=== PATIENT | female | born 1985 | race Caucasian/White ===

== ENCOUNTER 2018-09-22 12:46 | Day surgery (SDC) | payer OTHER ==
[2018-09-22 13:20] VITALS: BP 134/60; TEMP 98.1; BMI 37.0
--- NOTE | 2018-09-22 19:08 | ULT ---
OB ULTRASOUND 09/22/18 COMPARISON: None. HISTORY: Nonreactive stress test in the office. Perform umbilical doppler and ultrasound. TECHNIQUE: Multiplanar hoffmann scale and color doppler images were obtained in a ultrasound. Spectral analysi s of the doppler waveforms of the umbilical artery was also performed. FINDINGS: There is a single live intrauterine with heart rate of 139 beats per minute. Average age of the fetus based off today's examination is 33 weeks, 4 days. The following measurements were taken a nd dates based off these measurements are as follows: BPD 8.55 cm 34 weeks, 3 days HC 30.28 cm 33 weeks, 4 days AC 28.59 cm 32 weeks, 4 days FL 6.53 cm 33 weeks, 5 days The placenta is anterior in location without focal abnormality. The fetus is in cephalic presentation . Cervix is normal in length. QUINCY is 9.7 cm, which is normal. The umbilical artery was assessed. There is continued diastolic flow within the umbilical artery. The systolic to diastolic ratios in the umbilical artery range from 1.3 to 2.0, which are normal. A biophysical profile was performed. The fetus scored 8 of 8, which is normal. IMPRESSION: 1. Normal biophysical profile. 2. Single live intrauterine with estimated age of 33 weeks, 4 days. 3. Normal umbilical artery ultrasound. POS: [facility]
== END 2018-09-22 15:18 | disposition home or self-care (01) ==
LOC: L&D/OP 12:46
PROVIDERS: ATTEND Family Medicine
DX: Z01.89 Encounter for other specified special examinations (principal); Z3A.33 33 weeks gestation of pregnancy; Z79.899 Other long term (current) drug therapy
CPT/HCPCS: 76815; 76819; 93976; 99282

== ENCOUNTER 2018-10-29 20:00 | Inpatient (IN) | payer OTHER ==
[2018-10-29 21:07] VITALS: BMI 37.1
[2018-10-29] MEDS ORDERED: Butorphanol Tartrate 1 MG/ML VIAL SLOW IVP PRN (21:07)
[2018-10-29] MEDS ORDERED: Carboprost 250 MCG/ML AMP IM PRN (21:07)
[2018-10-29] MEDS ORDERED: NS w/ Oxytocin 10 units 500 ML IV SCH ×2 (21:07)
[2018-10-29] MEDS ORDERED: Ibuprofen 800 MG TAB PO PRN (21:07)
[2018-10-29] MEDS ORDERED: HYDROcodone/Acetaminophen 5/325 mg Tablet PO PRN (21:07)
[2018-10-29] MEDS ORDERED: Ondansetron PF 4 MG/2 ML Vial IVP PRN (21:07)
[2018-10-29] MEDS ORDERED: Promethazine HCl 25 MG/ML VIAL IM PRN (21:07)
[2018-10-29] MEDS ORDERED: Misoprostol 200 MCG TAB PR PRN (21:07)
[2018-10-29] MEDS ORDERED: Lidocaine 1% (PF) 30 ML VIAL SC PRN (21:07)
[2018-10-29] MEDS ORDERED: Methylergonovine 0.2 MG/ML VIAL IM PRN (21:07)
[2018-10-29] MEDS ORDERED: Diphenoxylate HCl/Atropine Tablet PO PRN (21:07)
[2018-10-29] MEDS ORDERED: Penicillin G Potassium 5 MILL.UNITS in Sodium Chloride 0.9% 100 ML IVPB SCH (21:07)
[2018-10-29] MEDS: Lactated Ringer's 1,000 ML IV SCH (21:39)
[2018-10-29 21:56] LABS: Hemoglobin 12.4 g/dL (12.0-16.0); Mean Corpuscular HGB CONC 35.4 g/dL (32.0-36.0); Mean Corpuscular Hemoglobin 31.4 pg (27.0-31.0); Mean Corpuscular Volume 88.7 fL (78.0-98.0); Mean Platelet Volume 8.8 fL (7.4-10.4); Platelet Count 284 thou/uL (130-400); RBC Distribution Width 12.1 % (11.5-14.5); Red Blood Cell (RBC) Count 3.96 mill/uL (4.20-5.40); White Blood Cell (WBC) Count 9.7 thou/uL (4.8-10.8)
[2018-10-29] MEDS: Misoprostol 100 MCG TAB PO SCH (22:07)
[2018-10-29 22:31] LABS: Syphilis Antibody Nonreactive (Nonreactive); Syphilis Antibody Index 0.12 S/CO (<1.00 Non-Reactive)
[2018-10-29 23:07] LABS: HBSAg Index 0.22 S/CO (0-0.99); Hep B Surf Ag Non-Reactive S/CO (NonReactive)
[2018-10-30] MEDS: Misoprostol 100 MCG TAB PO SCH ×2 (02:06→06:11)
[2018-10-30] MEDS: Lactated Ringer's 1,000 ML IV SCH ×4 (02:37→14:59)
[2018-10-30] MEDS: Penicillin G 2.5 MILL.units 2.5 MILL.UNITS in Premix Bag 1 BAG IVPB SCH ×4 (09:06→20:05)
[2018-10-30] MEDS ORDERED: Fentanyl 4 mcg/Bup 0.1% Cadd 100 ML ONE ×2 (10:07→16:29)
[2018-10-30] MEDS ORDERED: Fentanyl 100 MCG/2 ML VIAL ONE (10:19)
[2018-10-30] MEDS ORDERED: Bupivacaine 0.5% 10 ML VIAL ONE (10:19)
[2018-10-30] MEDS ORDERED: Bupivacaine 0.25% 10 ML VIAL EPIDURAL ONE (10:44)
[2018-10-30] MEDS ORDERED: diphenhydrAMINE 50 MG/ML VIAL IVP PRN (10:46)
[2018-10-30] MEDS ORDERED: Fentanyl 100 MCG/2 ML VIAL I-THECAL ONE (10:46)
[2018-10-30] MEDS ORDERED: Eucerin (Mineral Oil/Petrolatum,White) 30 gm Jar TOP PRN (10:46)
[2018-10-30] MEDS ORDERED: Acetaminophen 325 MG TAB PO PRN (10:46)
[2018-10-30] MEDS ORDERED: Ondansetron PF 4 MG/2 ML Vial IVP PRN ×2 (10:46→20:57)
[2018-10-30] MEDS ORDERED: Naloxone HCl 0.4 mg/ml Vial IVP PRN ×2 (10:46)
[2018-10-30] MEDS ORDERED: Lactated Ringer's 500 ML IV PRN (10:46)
[2018-10-30] MEDS ORDERED: Promethazine HCl 25 MG/ML VIAL IM PRN (10:46)
[2018-10-30] MEDS ORDERED: ePHEDrine/0.9% NaCl/PF SYRINGE 50 mg/10 ml SLOW IVP PRN (10:46)
[2018-10-30] MEDS ORDERED: Fentanyl 4 mcg/Bupivacaine 0.1% Cassette 100 ML EPIDURAL SCH (11:00)
[2018-10-30] MEDS ORDERED: Communication Order-Pharmacy FS SCH (11:00)
[2018-10-30] MEDS ORDERED: Bupivacaine HCl 0.5%/Epinephrine 1:200,000/PF 30 ml Vial ONE (11:11)
[2018-10-30] MEDS ORDERED: Lidocaine 2% MPF 10 ML AMP (For Epidural Use) ONE (11:11)
[2018-10-30] MEDS: NS / Oxytocin 40 units/1000ml 1,000 ML IV PRN ×2 (19:40→20:56)
[2018-10-30] MEDS ORDERED: Benzocaine/Menthol 20-0.5% 60 ML CAN TOP PRN (20:57)
[2018-10-30] MEDS ORDERED: diphenhydrAMINE 25 MG CAP PO PRN (20:57)
[2018-10-30] MEDS ORDERED: HYDROcodone/Acetaminophen 5/325 mg Tablet PO PRN ×2 (20:57)
[2018-10-30] MEDS ORDERED: Lanolin Ointment 7 GM TUBE TOP PRN (20:57)
[2018-10-30] MEDS ORDERED: Bisacodyl 10 MG SUPP PR PRN (20:57)
[2018-10-30] MEDS ORDERED: Preparation H Ointment 28 GM TUBE PR PRN (20:57)
[2018-10-30] MEDS ORDERED: NS / Oxytocin 40 units/1000ml 1,000 ML IV SCH (20:57)
[2018-10-30] MEDS ORDERED: Milk Of Magnesia 30 ML UDCUP PO PRN (20:57)
[2018-10-30] MEDS: Docusate Calcium (SURFAK) 240 MG CAP PO SCH (23:31)
[2018-10-30] MEDS: Ibuprofen 800 MG TAB PO SCH (23:31)
[2018-10-31] MEDS: Ibuprofen 800 MG TAB PO SCH ×3 (05:33→21:08)
[2018-10-31 08:13] LABS: Hemoglobin 11.6 g/dL (12.0-16.0); Mean Corpuscular HGB CONC 32.7 g/dL (32.0-36.0); Mean Corpuscular Hemoglobin 29.6 pg (27.0-31.0); Mean Corpuscular Volume 90.6 fL (78.0-98.0); Mean Platelet Volume 8.4 fL (7.4-10.4); Platelet Count 244 thou/uL (130-400); RBC Distribution Width 12.2 % (11.5-14.5); White Blood Cell (WBC) Count 11.9 thou/uL (4.8-10.8)
[2018-10-31] MEDS: Ferrous Sulfate 325 MG TAB PO SCH ×2 (09:49→17:29)
[2018-10-31] MEDS: Docusate Calcium (SURFAK) 240 MG CAP PO SCH ×2 (09:56→21:08)
[2018-10-31] MEDS: Prenatal Vitamin 1 TAB PO SCH (09:56)
[2018-11-01] MEDS: Ibuprofen 800 MG TAB PO SCH ×2 (05:56→14:00)
[2018-11-01 08:10] VITALS: BP 120/75; TEMP 98.1
[2018-11-01] MEDS: Ferrous Sulfate 325 MG TAB PO SCH (08:25)
[2018-11-01] MEDS: Docusate Calcium (SURFAK) 240 MG CAP PO SCH (09:16)
[2018-11-01] MEDS: Prenatal Vitamin 1 TAB PO SCH (09:16)
== END 2018-11-01 15:45 | disposition home or self-care (01) | DRG 807 ==
LOC: L&D 20:38 → 3SE 10-30 14:12 → L&D 10-30 14:14 → 3SW 10-30 22:07
PROVIDERS: ADMIT Family Medicine; ATTEND Family Medicine
PROC: 3E0P7VZ Introduction of Hormone into Female Reproductive, Via Natural or Artificial Opening (ICD-10-PCS; 2018-10-29)
PROC: 10907ZC Drainage of Amniotic Fluid, Therapeutic from Products of Conception, Via Natural or Artificial Opening (ICD-10-PCS; 2018-10-29)
PROC: 10E0XZZ Delivery of Products of Conception, External Approach (ICD-10-PCS; principal; 2018-10-30)
PROC: 10H07YZ Insertion of Other Device into Products of Conception, Via Natural or Artificial Opening (ICD-10-PCS; 2018-10-30)
DX: O24.420 Gestational diabetes mellitus in childbirth, diet controlled (principal); Z37.0 Single live birth; O99.214 Obesity complicating childbirth; O69.81X0 Labor and delivery complicated by cord around neck, without compression, not applicable or unspecified; E66.01 Morbid (severe) obesity due to excess calories; Z68.37 Body mass index [BMI] 37.0-37.9, adult; Z3A.38 38 weeks gestation of pregnancy
CPT/HCPCS: 36415; 36416; 51702; 85027; 86780; 86850; 86900; 86901; 87340; J0595; J0670; J2001; J3010; J3490

== ENCOUNTER 2019-11-12 19:45 | Inpatient (IN) | payer OTHER ==
[2019-11-13] MEDS ORDERED: Penicillin G Potassium 5 MILL.UNITS in Sodium Chloride 0.9% 100 ML IVPB SCH (11:05)
[2019-11-13] MEDS ORDERED: NS / Oxytocin 40 units/1000ml 1,000 ML IV PRN (11:05)
[2019-11-13] MEDS ORDERED: Lidocaine 1% (PF) 30 ML VIAL SC PRN (11:05)
[2019-11-13] MEDS ORDERED: Promethazine HCl 25 MG/ML VIAL IM PRN ×2 (11:05→17:47)
[2019-11-13] MEDS ORDERED: hydrALAZINE 20 MG/ML VIAL SLOW IVP PRN (11:05)
[2019-11-13] MEDS ORDERED: Butorphanol Tartrate 1 MG/ML VIAL SLOW IVP PRN (11:05)
[2019-11-13] MEDS ORDERED: NS w/ Oxytocin 10 units 500 ML IV SCH (11:05)
[2019-11-13] MEDS ORDERED: Ondansetron PF 4 MG/2 ML Vial IVP PRN ×2 (11:05→17:47)
[2019-11-13 11:08] VITALS: BMI 38.0
[2019-11-13] MEDS: Misoprostol 100 MCG TAB PO SCH (11:19)
[2019-11-13] MEDS: Lactated Ringer's 1,000 ML IV SCH ×2 (11:23→15:07)
[2019-11-13 11:43] LABS: Mean Corpuscular HGB CONC 34.6 g/dL (32.0-36.0); Mean Corpuscular Hemoglobin 31.3 pg (27.0-31.0); Mean Corpuscular Volume 90.2 fL (78.0-98.0); Mean Platelet Volume 8.9 fL (7.4-10.4); Platelet Count 223 thou/uL (130-400); RBC Distribution Width 12.6 % (11.5-14.5); Red Blood Cell (RBC) Count 3.85 mill/uL (4.20-5.40); White Blood Cell (WBC) Count 8.4 thou/uL (4.8-10.8)
[2019-11-13 12:26] LABS: HBSAg Index 0.25 S/CO (0-0.99); Hep B Surf Ag Non-Reactive S/CO (NonReactive); Syphilis Antibody Nonreactive (Nonreactive); Syphilis Antibody Index 0.09 S/CO (<1.00 Non-Reactive)
[2019-11-13] MEDS ORDERED: Fentanyl 4 mcg/Bup 0.1% Cadd 100 ML ONE (16:25)
[2019-11-13] MEDS ORDERED: diphenhydrAMINE 50 MG/ML VIAL IVP PRN (17:47)
[2019-11-13] MEDS ORDERED: ePHEDrine/0.9% NaCl/PF SYRINGE 50 mg/10 ml SLOW IVP PRN (17:47)
[2019-11-13] MEDS ORDERED: Lactated Ringer's 500 ML IV PRN (17:47)
[2019-11-13] MEDS ORDERED: Acetaminophen 325 MG TAB PO PRN (17:47)
[2019-11-13] MEDS ORDERED: Naloxone HCl 0.4 mg/ml Vial IVP PRN ×2 (17:47)
[2019-11-13] MEDS ORDERED: Communication Order-Pharmacy FS SCH (18:00)
[2019-11-13] MEDS ORDERED: Fentanyl 4 mcg/Bupivacaine 0.1% Cassette 100 ML EPIDURAL SCH (18:00)
[2019-11-13] MEDS: Penicillin G 2.5 MILL.units 2.5 MILL.UNITS in Premix Bag 1 BAG IVPB SCH (18:34)
[2019-11-14] MEDS ORDERED: Lanolin Ointment 7 GM TUBE TOP PRN (00:58)
[2019-11-14] MEDS ORDERED: Benzocaine-Menthol 82.5 ML CAN TOP PRN (00:58)
[2019-11-14] MEDS ORDERED: hydrALAZINE 20 MG/ML VIAL SLOW IVP PRN (00:58)
[2019-11-14] MEDS ORDERED: Promethazine HCl 25 MG/ML VIAL IM PRN (00:58)
[2019-11-14] MEDS ORDERED: Milk Of Magnesia 30 ML UDCUP PO PRN (00:58)
[2019-11-14] MEDS ORDERED: diphenhydrAMINE 25 MG CAP PO PRN (00:58)
[2019-11-14] MEDS ORDERED: Bisacodyl 10 MG SUPP PR PRN (00:58)
[2019-11-14] MEDS ORDERED: Ondansetron PF 4 MG/2 ML Vial IVP PRN (00:58)
[2019-11-14] MEDS ORDERED: NS / Oxytocin 40 units/1000ml 1,000 ML IV SCH (01:00)
[2019-11-14 01:08] LABS: Actual Bicarbonate (HCO3a) 25.1 mEq/L (22-28); Base Excess (BEa) -5.2 mEq/L (-2.0 to +3.0)
[2019-11-14] MEDS ORDERED: HYDROcodone/Acetaminophen 5/325 mg Tablet PO PRN ×2 (02:24)
[2019-11-14] MEDS: NS w/ Oxytocin 10 units 500 ML IV SCH ×2 (04:24→10:22)
[2019-11-14] MEDS: Misoprostol 100 MCG TAB PO SCH ×2 (04:43→04:44)
[2019-11-14] MEDS: Penicillin G 2.5 MILL.units 2.5 MILL.UNITS in Premix Bag 1 BAG IVPB SCH ×4 (04:44→22:05)
[2019-11-14] MEDS: Lactated Ringer's 1,000 ML IV SCH ×3 (04:45→10:22)
[2019-11-14 05:27] LABS: Hemoglobin 12.6 g/dL (12.0-16.0); Mean Corpuscular Hemoglobin 30.6 pg (27.0-31.0); Mean Corpuscular Volume 89.9 fL (78.0-98.0); Platelet Count 222 thou/uL (130-400); RBC Distribution Width 12.9 % (11.5-14.5); White Blood Cell (WBC) Count 15.3 thou/uL (4.8-10.8)
[2019-11-14] MEDS: Docusate Calcium (SURFAK) 240 MG CAP PO SCH ×2 (08:08→21:43)
[2019-11-14] MEDS: Prenatal Vitamin 1 TAB PO SCH (08:08)
[2019-11-14] MEDS: Ferrous Sulfate 325 MG TAB PO SCH ×2 (08:08→18:46)
[2019-11-14] MEDS: Ibuprofen 800 MG TAB PO SCH ×3 (08:08→21:43)
[2019-11-14] MEDS ORDERED: Adacel (T-DAP) 0.5 ML SYRINGE IM ONE (09:00)
[2019-11-14] MEDS ORDERED: FLU VACC QS2019-20(6MOS UP)/PF 60 MCG/0.5 ML SYRINGE IM ONE (11:15)
[2019-11-15] MEDS: Lactated Ringer's 1,000 ML IV SCH (02:47)
[2019-11-15] MEDS: Penicillin G 2.5 MILL.units 2.5 MILL.UNITS in Premix Bag 1 BAG IVPB SCH ×2 (02:47→06:50)
[2019-11-15] MEDS: Ibuprofen 800 MG TAB PO SCH (05:54)
[2019-11-15 08:18] VITALS: BP 124/83; TEMP 98.1
[2019-11-15] MEDS: Ferrous Sulfate 325 MG TAB PO SCH (08:41)
[2019-11-15] MEDS: Docusate Calcium (SURFAK) 240 MG CAP PO SCH (08:43)
[2019-11-15] MEDS: Prenatal Vitamin 1 TAB PO SCH (08:43)
== END 2019-11-15 10:30 | disposition home or self-care (01) | DRG 807 ==
LOC: L&D 11-13 10:09 → 3SE 11-14 04:29
PROVIDERS: ADMIT Family Medicine; ATTEND Family Medicine
PROC: 10E0XZZ Delivery of Products of Conception, External Approach (ICD-10-PCS; principal; 2019-11-14)
PROC: 0KQM0ZZ Repair Perineum Muscle, Open Approach (ICD-10-PCS; 2019-11-14)
PROC: 10907ZC Drainage of Amniotic Fluid, Therapeutic from Products of Conception, Via Natural or Artificial Opening (ICD-10-PCS; 2019-11-14)
PROC: 3E0P7VZ Introduction of Hormone into Female Reproductive, Via Natural or Artificial Opening (ICD-10-PCS; 2019-11-14)
PROC: 3E033VJ Introduction of Other Hormone into Peripheral Vein, Percutaneous Approach (ICD-10-PCS; 2019-11-14)
DX: O76 Abnormality in fetal heart rate and rhythm complicating labor and delivery (principal); Z37.0 Single live birth; O70.1 Second degree perineal laceration during delivery; Z3A.39 39 weeks gestation of pregnancy
CPT/HCPCS: 36415; 51702; 82805; 85027; 86780; 86850; 86900; 86901; 87340; 90471; 90686; G0008; J2540; J2590; J3490